=== PATIENT | male | born 1935 | race Hispanic/Latino ===

== ENCOUNTER 2019-04-17 09:35 | Emergency (ER) | payer OTHER, SELFPAY ==
[2019-04-17] MEDS ORDERED: NA CHLORIDE 0.9% 1,000 ML ONE (10:21)
[2019-04-17] MEDS ORDERED: FENTANYL CITR 100 MCG/2 ML ONE (10:21)
[2019-04-17] MEDS ORDERED: ONDANSETRON 4 MG/2 ML VIAL ONE (10:21)
[2019-04-17 10:38] LABS: Absolute Lymphocytes (CBC) 1.2 K/uL (0.7-4.9); Basophils % 0.3 % (0-1.3); Hematocrit 44.6 % (39.6-49.0); Lymphocytes % 8.8 % (15.3-44.8); MPV 11.6 fL (7.6-11.3); RBC Red Blood Cell Count 4.68 M/uL (4.33-5.43)
[2019-04-17 10:39] LABS: Protime INR 1.02
[2019-04-17 10:52] LABS: ALT/SGPT 21 U/L (12-78); AST/SGOT 22 U/L (15-37); Albumin 3.9 g/dL (3.4-5.0); Alkaline Phosphatase 96 U/L (45-117); BUN Blood Urea Nitrogen 22 mg/dL (7-18); Bicarbonate 23 mmol/L (21-32); Bilirubin Direct 0.2 mg/dL (0-0.2); Bilirubin Total 0.6 mg/dL (0.2-1.0); Glucose Level 143 mg/dL (74-106); Magnesium 2.2 mg/dL (1.8-2.4); NT PRO-BNP 2335 pg/mL (<450); Potassium 4.4 mmol/L (3.5-5.1); Protein, Total 7.3 g/dL (6.4-8.2); Sodium Level 142 mmol/L (136-145); Troponin (Emerg Dept Use Only) < 0.02 ng/mL (0.0-0.045)
--- NOTE | 2019-04-17 11:27 | RAD REPORT ---
EXAM DESCRIPTION: RAD - Shoulder 1 View - 04/17/2019 10:58 am FINDINGS: Single portable supine image obtained has post reduction follow-up examination. Humeral head has been reduced back to normal anatomic position. AC joint degenerative changes are pre sent. Acromial humeral joint space is narrowed and the patient may well have chronic rotator cuff tea r. There is a faint crescent-shaped bony density along the inferior margin of the acetabulum. Bankart le monica is possible.
--- NOTE | 2019-04-17 11:29 | RAD REPORT ---
EXAM DESCRIPTION: RAD - Shoulder 1 View - 04/17/2019 10:36 am CLINICAL HISTORY: Right shoulder pain FINDINGS: Anterior dislocation involves the right humeral head. No fracture seen.
--- NOTE | 2019-04-17 11:31 | RAD REPORT ---
EXAM DESCRIPTION: Amanda Single View04/17/2019 11:12 am CLINICAL HISTORY: Cough COMPARISON: None FINDINGS: Mild bilateral interstitial lung opacities The heart is mildly enlarged. Pacemaker leads are in place. Postsurgical changes involve the chest Bony/calcific density lies along the inferior aspect of the glenohumeral joint which may represent a degenerative calcification or bone fragment acute versus chronic IMPRESSION: Mild CHF
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
--- NOTE | 2019-04-17 11:52 | EDPHYS ---
Physician Documentation [facility] Name: Navid Galeana Age: 84 yrs Sex: Male : 1935 Arrival Date: 04/17/2019 Time: 09:40 Bed 4 Private MD: ED Physician Anil Marquez HPI: 04/17 10:11 This 84 yrs old Male presents to ER via EMS with complaints of Shoulder Injury.lynn 10:11 The patient or guardian complains of decreased range of motion, pain, swelling. right lynn shoulder. Context: The problem was sustained. Onset: The symptoms/episode began/occurred 2 day(s) ago. Modifying factors: the symptoms are alleviated by remaining still, The symptoms are aggravated by movement. Associated signs and symptoms: The patient has no apparent associated signs or symptoms. Severity of symptoms: At their worst the symptoms were mild, in the emergency department the symptoms are unchanged. The patient has not experienced similar symptoms in the past. Historical: - Allergies: 09:42 No Known Allergies; jl7 - PMHx: 09:42 Hypertension; Pacemaker; jl7 - PSHx: 09:42 pacemaker; jl7 - Immunization history:: Adult Immunizations unknown. - Social history:: Smoking status: unknown. - Ebola Screening: : No symptoms or risks identified at this time. - Family history:: not pertinent. ROS: 10:11 Constitutional: Negative for fever, chills, and weight loss, Eyes: Negative for injury, lynn pain, redness, and discharge, ENT: Negative for injury, pain, and discharge, Neck: Negative for injury, pain, and swelling, Cardiovascular: Negative for chest pain, palpitations, and edema, Respiratory: Negative for shortness of breath, cough, wheezing, and pleuritic chest pain, Abdomen/GI: Negative for abdominal pain, nausea, vomiting, diarrhea, and constipation, Back: Negative for injury and pain, : Negative for injury, bleeding, discharge, and swelling, Skin: Negative for injury, rash, and discoloration, Neuro: Negative for headache, weakness, numbness, tingling, and seizure, Psych: Negative for depression, anxiety, suicide ideation, homicidal ideation, and hallucinations, Allergy/Immunology: Negative for hives, rash, and allergies, Endocrine: Negative for neck swelling, polydipsia, polyuria, polyphagia, and marked weight changes. 10:11 MS/extremity: Positive for decreased range of motion, pain, of the anterior aspect of right shoulder, right bicep, posterior aspect of right shoulder and right tricep. Exam: 10:11 Constitutional: This is a well developed, well nourished patient who is awake, alert, lynn and in no acute distress. Head/Face: Normocephalic, atraumatic. Eyes: Pupils equal round and reactive to light, extra-ocular motions intact. Lids and lashes normal. Conjunctiva and sclera are non-icteric and not injected. Cornea within normal limits. Periorbital areas with no swelling, redness, or edema. ENT: Nares patent. No nasal discharge, no septal abnormalities noted. Tympanic membranes are normal and external auditory canals are clear. Oropharynx with no redness, swelling, or masses, exudates, or evidence of obstruction, uvula midline. Mucous membranes moist. Neck: Trachea midline, no thyromegaly or masses palpated, and no cervical lymphadenopathy. Supple, full range of motion without nuchal rigidity, or vertebral point tenderness. No Meningismus. Chest/axilla: Normal chest wall appearance and motion. Nontender with no deformity. No lesions are appreciated. Cardiovascular: Regular rate and rhythm with a normal S1 and S2. No gallops, murmurs, or rubs. Normal PMI, no JVD. No pulse deficits. Respiratory: Lungs have equal breath sounds bilaterally, clear to auscultation and percussion. No rales, rhonchi or wheezes noted. No increased work of breathing, no retractions or nasal flaring. Abdomen/GI: Soft, non-tender, with normal bowel sounds. No distension or tympany. No guarding or rebound. No evidence of tenderness throughout. Back: No spinal tenderness. No costovertebral tenderness. Full range of motion. Male : Normal genitalia with no discharge or lesions. Skin: Warm, dry with normal turgor. Normal color with no rashes, no lesions, and no evidence of cellulitis. Neuro: Awake and alert, GCS 15, oriented to person, place, time, and situation. Cranial nerves II-XII grossly intact. Motor strength 5/5 in all extremities. Sensory grossly intact. Cerebellar exam normal. Normal gait. Psych: Awake, alert, with orientation to person, place and time. Behavior, mood, and affect are within normal limits. 10:11 Musculoskeletal/extremity: Extremities: decreased ROM, deformity, pain, ROM: limited active range of motion due to pain, limited passive range of motion due to pain, Circulation is intact in all extremities. Sensation intact. Compartment Syndrome exam of affected extremity: is normal. DVT Exam: no swelling, no appreciated bluish discoloration, no erythema, no increased warmth, pain, tenderness. Vital Signs: 09:42 BP 169 / 102; Pulse 84; Resp 19 S; Temp 97.9(TE); Pulse Ox 100% on R/A; jl7 10:02 BP 217 / 94; Pulse 89; Resp 18 S; Pulse Ox 99% on R/A; aa5 10:40 BP 205 / 103; Pulse 87; Resp 16 S; Pulse Ox 96% on R/A; Pain 0/10; aa5 11:10 BP 190 / 94; Pulse 80; Resp 16 S; Pulse Ox 100% on R/A; aa5 11:54 BP 182 / 90; Pulse 80; Resp 18 S; Pulse Ox 100% on R/A; aa5 10:02 MD notified of increased BP aa5 MDM: 09:41 Patient medically screened. [facility] 10:13 Data reviewed: vital signs, nurses notes, lab test result(s), EKG, radiologic studies, lynn plain films. 04/17 10:10 Order name: Basic Metabolic Panel; Complete Time: 11:48 lynn 04/17 10:10 Order name: CBC with Diff [facility] 04/17 10:10 Order name: LFT's; Complete Time: 11:48 lynn 04/17 10:10 Order name: Magnesium; Complete Time: 11:48 lynn 04/17 10:10 Order name: NT PRO-BNP; Complete Time: 11:48 lynn 04/17 10:10 Order name: PT-INR; Complete Time: 11:48 lynn 04/17 10:10 Order name: Troponin (emerg Dept Use Only); Complete Time: 11:48 lynn 04/17 10:10 Order name: XRAY Chest (1 view); Complete Time: 11:48 lynn 04/17 10:33 Order name: Shoulder 1 View; Complete Time: 11:48 EDMS 04/17 10:41 Order name: Shoulder (1 View) XRAY; Complete Time: 11:48 eb 04/17 10:10 Order name: EKG; Complete Time: 10:10 [facility] 04/17 10:10 Order name: Cardiac monitoring; Complete Time: [facility] 04/17 10:10 Order name: EKG - Nurse/Tech; Complete Time: : [facility] 04/17 10:10 Order name: IV Saline Lock; Complete Time: 11: [facility] 04/17 10:10 Order name: Labs collected and sent; Complete Time: [facility] 04/17 10:10 Order name: O2 Per Protocol; Complete Time: : [facility] 04/17 10:10 Order name: O2 Sat Monitoring; Complete Time: : [facility] 04/17 11:50 Order name: Shoulder Immobilizer; Complete Time: 53 [facility] 04/17 11:50 Order name: Ice pack; Complete Time: :53 [facility] Administered Medications: 10:22 Drug: NS 0.9% 500 ml Route: IV; Rate: bolus; Site: left wrist; aa5 10:22 Drug: NS 0.9% 1000 ml Route: IV; Rate: 125 ml/hr; Site: left wrist; aa5 10:22 Drug: fentaNYL (PF) 50 mcg Route: IVP; Site: left forearm; aa5 10:30 Follow up: Response: No adverse reaction; Pain is decreased aa5 10:22 Drug: Zofran 4 mg Route: IVP; Site: left forearm; aa5 10:30 Follow up: Response: No adverse reaction aa5 Disposition: 04/17/19 11:51 Discharged to Home. Impression: Other dislocation of right shoulder joint, Unspecified combined systolic (congestive) and diastolic (congestive) heart failure - mild, Essential (primary) hypertension. - Condition is Stable. - Discharge Instructions: Heart Failure, Shoulder Dislocation, Hypertension, Hypertension, Fkja-hi-Gzty, How to Take Your Blood Pressure, Fybr-wc-Rtrz, Managing Your Hypertension, Shoulder Dislocation, Ysau-zj-Dwwr. - Prescriptions for Tylenol- Codeine #3 300-30 mg Oral Tablet - take 2 tablets by ORAL route every 6 hours As needed; 26 tablet. - Medication Reconciliation Form, Thank You Letter, Antibiotic Education, Prescription Opioid Use form. - Follow up: Private Physician; When: 2 - 3 days; Reason: Recheck today's complaints, Continuance of care, Re-evaluation by your physician. - Problem is new. - Symptoms have improved. Signatures: Dispatcher [employer] [facility] Anil Marquez MD MD cha Calderon, Audri, RN RN aa5 Rekha Darden RN RN jl7 Corrections: (The following items were deleted from the chart) 10:33 10:11 Shoulder Right 2 View+RAD.RAD.BRZ ordered. [facility] 12:40 11:51 04/17/2019 11:51 Discharged to Home. Impression: Other dislocation of right jl7 shoulder joint; Unspecified combined systolic (congestive) and diastolic (congestive) heart failure - mild; Essential (primary) hypertension. Condition is Stable. Forms are Medication Reconciliation Form, Thank You Letter, Antibiotic Education, Prescription Opioid Use. Follow up: Private Physician; When: 2 - 3 days; Reason: Recheck today's complaints, Continuance of care, Re-evaluation by your physician. Problem is new. Symptoms have improved. lynn
[2019-04-17 12:57] VITALS: TEMP 97.9
[2019-04-17 13:01] VITALS: O2SAT 100
[2019-04-17 13:02] VITALS: BP 182/90
[2019-04-17 13:20] LABS: Blood Morphology Comment NOT SEEN (NOT SEEN); Platelet Estimate ADEQ; Urine White Blood Cell Casts OK
--- NOTE | 2019-04-18 06:37 | EKG ---
Test Date: 2019-04-17 Test Time: 11:24:33 Backshoe Person: NINO MEASUREMENT RESULTS: Intervals: Rate: 82 GA: 166 QRSD: 116 QT: 372 QTc: 434 [place]: P: GA: 166 QRS: 109 T: -46 INTERPRETIVE STATEMENTS: Normal sinus rhythm Rightward axis Cannot rule out Anterior infarct, age undetermined ST & T wave abnormality, consider inferior ischemia Abnormal ECG No previous ECG available for comparison Electronically Signed On 04-18-19 06:36:01 COVER ASSEMBLER by Benny Cortez
== END 2019-04-17 12:40 | disposition home or self-care (01) ==
LOC: ER 09:35 → EDBD 09:35 → ER 12:40
DX: S43.084A Other dislocation of right shoulder joint, initial encounter (principal); I50.40 Unspecified combined systolic (congestive) and diastolic (congestive) heart failure; I10 Essential (primary) hypertension; W01.0XXA Fall on same level from slipping, tripping and stumbling without subsequent striking against object, initial encounter; Y93.01 Activity, walking, marching and hiking; Y92.510 Bank as the place of occurrence of the external cause; Z95.0 Presence of cardiac pacemaker
CPT/HCPCS: 93005; 85025; 80048; 36415; 83735; 85610; 80076; 84484; 83880; 71045; 73020 ×2; 96375; 96374; 99284; J3010; J7030; J2405

== ENCOUNTER 2019-06-08 14:34 | Inpatient (IN) | payer OTHER ==
--- OUTSIDE RECORDS SUMMARY | 2019-06-08 14:35 | XMS REPORT ---
:1935 [facility] Address [address] [place] [address] [address]. [address] [place] [address] Care Team Providers Name Role Phone Unavailable Unavailable Unavailable Payers Payer Name Policy Type Policy Number Effective Date Expiration Date Problems This patient has no known problems. Allergies, Adverse Reactions, Alerts Allergy Allergy Status Severity Reaction(s) Onset Inactive Treating Comments Name Type Date Date Clinician No Known DA Active U 2012-09 Allergies -10 00:00:0 0 Medications This patient has no known medications. Results Test Description Test Time Test Comments Text Results Atomic Results Result Comments MERISSA,ANH 2017-12-31 RUN DATE: 11:00:00 12/31/17 [facility] - Lab PAGE 1 RUN TIME: 1100 Specimen Inquiry RUN USER: INTERFACE PATIENT: IANCHIDI Newberry LOC: ROLANDA U #: [id number] AGE/SX: 82/M [facility]: Deepak Dewitt MD : 31 BED: A DIS: STATUS: ADM IN TLOC: SPEC #: [id number] RECD: 12/30/17 STATUS: PRAVEEN REQ # : [id number] YANELIS: 12/30/17 [facility] DR: Deepak Dewitt MD ENTERED: 12/30/17 SP TYPE: ARTERY, PL OTHR DR: Ron Liirano MD, Gregory S MDORDERED: DECAL, SURG PATH LVL 3 CODES: [id number] - ARTERY, NOS [id number] - ARTERY , NOS PLAQUE, NOS [id number] - ARTERY, NOS DEGENERATION, N [id number] - ARTERY, NOS SCLEROSIS, NOS [id number] - ARTERY, NOS NEOPLASM, MALIG COPIES TO: [place] [id number] [place] [address] [place] [id number] [facility] [address] [place] [address] [place] [id number] [facility] [address] [place] [id number] PROCEDURES: DECAL (12/31/17) SURG PATH LVL 3 (12/30/171520) TISSUES: A. 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 - NO ATYPIA. - NO MALIGNANCY. GROSS DESCRIPTION Right carotid plaque. The specimen consists of a segment of yellow-miles calcified plaque measuring 3.5 x 1 x 0.8 cm. Section submitted for brief decalcification as A1. /tc/pdb MICROSCOPIC DESCRIPTION Right carotid plaque. Dense aggregate of occlusive atheromatous plaque material with dense hyalinizing stromal sclerosis and marked dystrophic calcification. No atypia. No malignancy. /pdb Signed SIGNATURE ON FILE Cirilo Farrar 12/31/17 1100 END OF REPORT
[2019-06-08 15:04] LABS: Absolute Lymphocytes (CBC) 1.4 K/uL (0.7-4.9); Basophils % 0.5 % (0-1.3); MPV 11.3 fL (7.6-11.3); RBC Red Blood Cell Count 4.25 M/uL (4.33-5.43)
[2019-06-08 15:16] LABS: Protime INR 1.07
[2019-06-08 15:21] LABS: Urine Blood NEGATIVE (NEG); Urine Glucose NEGATIVE (NEG); Urine Protein NEGATIVE (NEG)
[2019-06-08 15:21] LABS: Urine Bacteria 20-50 /HPF (NONE SEEN); Urine Culture Reflex Order NOT NEEDED; Urine Mucus 1+ /HPF (NONE SEEN); Urine RBC <5 /HPF (NONE SEEN)
[2019-06-08] MEDS ORDERED: RSI MEDICATION KIT IV ONE (15:35)
[2019-06-08] MEDS ORDERED: ONDANSETRON 4 MG/2 ML VIAL ONE (15:38)
[2019-06-08] MEDS ORDERED: MIDAZOLAM HCL 2 MG/2 ML INJ ONE (15:58)
[2019-06-08 15:59] LABS: ALT/SGPT 14 U/L (12-78); AST/SGOT 17 U/L (15-37); Albumin 3.1 g/dL (3.4-5.0); Alkaline Phosphatase 76 U/L (45-117); BUN Blood Urea Nitrogen 35 mg/dL (7-18); Bicarbonate 22 mmol/L (21-32); Bilirubin Direct 0.2 mg/dL (0-0.2); Bilirubin Total 0.7 mg/dL (0.2-1.0); Glucose Level 113 mg/dL (74-106); Lipase 203 U/L (73-393); Potassium 4.9 mmol/L (3.5-5.1); Protein, Total 6.2 g/dL (6.4-8.2); Sodium Level 141 mmol/L (136-145); Troponin (Emerg Dept Use Only) < 0.02 ng/mL (0.0-0.045)
[2019-06-08 16:06] LABS: Arterial Blood Carboxyhemoglob 0.7 % (0-1.5); Blood Gas Oxyhemoglobin 93.2 % (94-97); Blood O2 Saturation 94.5 % (92-98.5)
--- NOTE | 2019-06-08 16:46 | RAD REPORT ---
EXAM DESCRIPTION: CT - Head Brain Wo Cont - 06/08/2019 4:38 pm CLINICAL HISTORY: Alteration of awareness/confusion COMPARISON: None TECHNIQUE: Computed axial tomography of the head was obtained. IV contrast was not requested. All CT scans are performed using dose optimization technique as appropriate and may include automated exposure control or mA/KV adjustment according to patient size. FINDINGS: An intracranial bleed is not seen . The ventricles are normal in caliber. No extra-axial fluid collection is noted. Mild low-density areas within periventricular, deep and subcortical white matter likely represent isc hemic changes secondary to small vessel disease. Fluid within the sinuses/ mastoids is not seen. IMPRESSION: No acute intracranial abnormality is seen. If patient's symptoms persist MRI of the bra in would be recommended.
[2019-06-08] MEDS ORDERED: propofoL 1,000 MG/100 ML VIAL IV ONE (16:54)
[2019-06-08] MEDS ORDERED: NA CHLORIDE 0.9% 1,000 ML ONE ×2 (16:54→17:52)
--- NOTE | 2019-06-08 16:57 | RAD REPORT ---
EXAM DESCRIPTION: CT - Chest Abd Pelvis Wo Con - 06/08/2019 4:38 pm CLINICAL HISTORY: Abd pain COMPARISON: none TECHNIQUE: Computed axial tomography of the chest, abdomen and pelvis was obtained. Oral contrast wa s given. IV contrast was not requested. All CT scans are performed using dose optimization technique as appropriate and may include automated exposure control or mA/KV adjustment according to patient size. FINDINGS: The evaluation of mediastinum, nixon, vessels and solid organs is limited secondary to the lack of IV contrast administration Endotracheal tube with its tip in the right mainstem bronchus No mediastinal or hilar lymphadenopathy is seen. A pleural effusion is not present. A pericardial effusion is not seen. Bilateral lower lobe consolidation. Left upper lobe atelectasis. Mild left lower lobe atelectasis. The liver, spleen, pancreas, adrenals and right kidney appear grossly normal. Left kidney is small There is no evidence of diverticulitis. Mild anterior subluxation L5 on S1. Spondylolysis L5 Bilateral inguinal hernias contain fat Nasogastric tube with its tip in the duodenal bulb. Duodenal diverticulum Burroughs catheter within the bladder. Elpx-xx-puhxqesg enlargement of the prostate gland IMPRESSION: Bilateral pneumonia Nasogastric tube with its tip in the duodenal bulb Endotracheal tube with its tip in the right mainstem bronchus with left atelectasis Nurse Elsi notified 4:46 p.m. on June 08, 2011
[2019-06-08] MEDS ORDERED: Levofloxacin 750mg IV 750 MG/150 ML BAG IV ONE (17:15)
[2019-06-08] MEDS ORDERED: CEFTRIAXONE/SWI 1gm 1 GM/10 ML SYR ONE (17:15)
--- NOTE | 2019-06-08 17:21 | RAD REPORT ---
EXAM DESCRIPTION: Amanda Single View06/08/2019 5:01 pm CLINICAL HISTORY: Hypoxia COMPARISON: April 2019 FINDINGS: An endotracheal tube has its tip in the right mainstem bronchus. Nasogastric tube is present within the duodenal bulb Left lung atelectasis Mild right lung opacities. Postsurgical changes involve the chest IMPRESSION: Endotracheal tube with its tip in the right mainstem bronchus
--- NOTE | 2019-06-08 17:25 | RAD REPORT ---
EXAM DESCRIPTION: RADChest Single View06/08/2019 5:02 pm CLINICAL HISTORY: Endotracheal tube placement FINDINGS: Endotracheal tube has been retracted. It lies in the very proximal right mainstem bronchu s and should be retracted [address] Tejada in Emergency room was notified at 5:20 p.m. June 08, 2019
--- NOTE | 2019-06-08 17:28 | EDPHYS ---
Physician Documentation [facility] Name: Navid Galeana Age: 84 yrs Sex: Male : 1935 Arrival Date: 06/08/2019 Time: 14:37 Bed 4 Private MD: ED Physician HPI: 06/07 14:44 This 84 yrs old Male presents to ER via Unassigned with complaints of AMS. rn 14:44 The patient presents with decreased responsiveness. Onset: The symptoms/episode rn began/occurred at an unknown time. Possible causes: unknown. Current symptoms: In the emergency department the patient's symptoms have improved. It is unknown whether or not the patient has had similar symptoms in the past. EMS reports AMS, unclear onset, was found unresponsive sitting in chair at home, low O2, covered in emesis, no seizure activity, moans and groans, agitated at times, but not at baseline per family. Unknown if any trauma. Family states only hx of HTN and pacemaker and that he has episodes similar to this before but could not explain more than this. . Historical: - Allergies: 15:11 No Known Allergies; sv - Home Meds: 19:30 lisinopril 20 mg Oral tab 1 tab twice daily [Active]; carvedilol oral 12 mg oral 1 tab sg 2 times per day [Active]; clopidogrel 75 mg oral tab 1 tab once daily [Active]; pravastatin 40 mg oral tab 1 tab once daily [Active]; aspirin 81 mg Oral chew 1 tab once daily [Active]; Vitamin B-12 1,000 mcg Oral tab daily [Active]; Vitamin D 50 mcg Oral daily [Active]; Toviaz 4 mg oral Tb24 1 tab once daily [Active]; - PMHx: 15:11 Hypertension; Pacemaker; High Cholesterol; sv - PSHx: 15:11 Carotid surgery; sv - Immunization history:: Adult Immunizations unknown. - Social history:: Smoking status: unknown. - Unable to obtain history due to: altered mental status. ROS: 14:44 Unable to obtain ROS due to altered mental status. rn Exam: 14:44 Constitutional: This is a well developed, well nourished patient who is sitting in rn stretcher, moaning, trying to take facemask off, covered in emesis. Head/Face: Normocephalic, atraumatic. Eyes: Pupils equal round and reactive to light ENT: No oral swelling or trauma Cardiovascular: Regular rate and rhythm. No pulse deficits. Respiratory: + coarse and diminished breath sounds bilateral Abdomen/GI: soft, + grimaces with palpation in all 4 quadrants MS/ Extremity: Pulses equal, no cyanosis. Moves all 4 ext. Neuro: decreased responsiveness, will groan and localize to painful stimuli, moves all 4 ext. Vital Signs: 14:40 BP 83 / 62; Pulse 73; Resp 30; Pulse Ox 100% ; sv 15:10 Temp 95.2(C); sv 15:20 Resp 34; Pulse Ox 98% ; sv 15:30 Weight 70 kg; sv 15:38 BP 119 / 57; Pulse 92; Resp 17; Pulse Ox 100% ; sv 15:45 BP 213 / 108; Pulse 84; Resp 15; Pulse Ox 100% on ETT ambu; sv 16:00 BP 216 / 133; Pulse 98; Resp 18; Temp 95.6(C); Pulse Ox 100% on ETT ambu; sv 16:15 BP 232 / 123; Pulse 101; Resp 18; Pulse Ox 100% on ETT vent; sv 16:45 BP 211 / 109; Pulse 85; Resp 18; Pulse Ox 97% ; sv 17:15 BP 107 / 74; Pulse 78; Resp 18; Temp 95.5(C); Pulse Ox 97% on ETT vent; sv 17:54 BP 104 / 68; Pulse 77; Resp 12; Pulse Ox 94% on 100% FiO2 ETT vent; sv 18:00 BP 74 / 41; Pulse 62; Resp 18; Pulse Ox 84% on 100% FiO2 ETT vent; sv 18:15 BP 62 / 39; Pulse 60; Resp 17; Pulse Ox 98% on 100% FiO2 ETT vent; sv 18:23 BP 79 / 59; Pulse 68; Resp 19; Temp 95.2(C); Pulse Ox 81% on 100% FiO2 ETT vent; sv 18:30 BP 107 / 73; Pulse 73; Resp 18; Pulse Ox 80% on 100% FiO2 ETT vent; sv 18:47 BP 104 / 67; Pulse 75; Resp 18; Pulse Ox 84% on 100% FiO2 ETT vent; sv 19:00 BP 67 / 47; Pulse 81; Resp 19; Pulse Ox 67% on 100% FiO2 ETT vent; sv 19:09 BP 60 / 29; Pulse 75; Resp 24; Pulse Ox 78% on 100% FiO2 ETT vent; sv 19:15 BP 60 / 32; Pulse 70; Resp 24; Temp 95.5(C); Pulse Ox 50% on 100% FiO2 ETT vent; sg 19:20 BP 62 / 41; Pulse 78; sg 19:40 BP 60 / 42; Pulse 80; Pulse Ox 53% on 100% FiO2 ETT vent; sg 20:15 BP 70 / 48; Pulse 84; Resp 26; Temp 96.7(C); Pulse Ox 60% on 100% FiO2 ETT vent; sg 20:45 BP 71 / 59; Pulse 81; Resp 24; Temp 97.5; Pulse Ox 70% on 100% FiO2 ETT vent; sg 21:00 BP 71 / 50; Pulse 78 MON; Resp 26 A; Temp 98.1(C); Pulse Ox 75% on 100% FiO2 ETT vent; sg 18:[address] Tejada of the O2 sat and informed that the waveform appears good. sv 19:15 RT at bedside for repeat ABG, adjustments to ETT to improve pt saturation sg 19:20 levophed increased at this time sg Procedures: 15:53 Intubation: Ventilated with 100% NRB prior to procedure. O2 saturation prior to admitted attorneys was 97 %. Intubated orally using # 4 Debbie blade with 7.5 mm ETT. was successful on first attempt. Cricoid pressure applied during procedure. Tube secured measured 23 cm at teeth. Placement verified by CO2 detector with (+) color change, auscultating bilateral breath sounds, O2 saturation after procedure was 98 %. Patient tolerated well. Central Line: the site was prepped with Betadine, in sterile fashion, a triple lumen catheter was inserted, in the right in 1 attempts. placement was verified, by blood return, the site was dressed with Tegaderm, using sterile technique, the patient tolerated the procedure, well. MDM: 14:37 Patient medically screened. rn 15:58 ED course: Patient actually started speaking some words, not making sense still, rn intubated for airway protection and to control situation and get imaging performed as patient agitated and continuously trying to remove lines/tubes.. 16:39 ED course: Tube was secured at intubation at 23 at gum/teeth, xray shows right rn mainstem, and checked depth again in ct, tube was somehow pushed down on transport to 26.5, RT pulling tube back to 22cm now.. 16:48 ED course: ETT pulled back to 21cm at [facility]. rn 17:06 Differential Diagnosis: CVA, electrolyte abnormality, hypoglycemia, intracranial bleed, rn pneumonia, seizure, sepsis, TIA, UTI, volume depletion. Data reviewed: vital signs, nurses notes, lab test result(s), EKG, radiologic studies, CT scan, plain films, and as a result, I will admit patient. Test interpretation: by ED physician or midlevel provider: ECG, plain radiologic studies. 17:23 ED course: ETT pulled back, was just proximal right mainstem, now 19cm at [facility].. rn 18:45 ED course: Pt desaturated, improved with suction, a lot of purulent fluid pulled out of rn lungs, notified Dr. Garcia of clinical change and need for reeval. Improves with bagging. . 06/07 14:41 Order name: Urine Culture rn 06/07 14:41 Order name: Basic Metabolic Panel; Complete Time: 17:21 rn 06/07 14:41 Order name: Blood Culture Adult (2) rn 06/07 14:41 Order name: CBC with Diff rn 06/07 14:41 Order name: Lactate; Complete Time: 15:55 rn 06/07 14:41 Order name: LFT's; Complete Time: 17:21 rn 06/07 14:41 Order name: Lipase; Complete Time: 17:21 rn 06/07 14:41 Order name: Procalcitonin; Complete Time: 17:21 rn 06/07 14:41 Order name: Protime (+inr); Complete Time: 17:21 rn 06/07 14:41 Order name: Ptt, Activated; Complete Time: 17:21 rn 06/07 14:41 Order name: Troponin (emerg Dept Use Only); Complete Time: 17:21 rn 06/07 14:41 Order name: Urine Microscopic Only; Complete Time: 15:55 rn 06/07 14:41 Order name: Flu rn 06/07 15:07 Order name: CBC with Automated Diff EDMS 06/07 14:41 Order name: Chest Single View XRAY; Complete Time: 18:25 rn 06/07 14:43 Order name: CT Head Brain wo Cont; Complete Time: 17:21 rn 06/07 14:43 Order name: CT Chest Abdomen W/ Contrast rn 06/07 15:07 Order name: Glucose, Ancillary Testing; Complete Time: 15:55 EDMS 06/07 15:12 Order name: Urine Dipstick--Ancillary (enter results) bd 06/07 15:22 Order name: Urine Dipstick-Ancillary; Complete Time: 15:55 EDMS 06/07 15:56 Order name: ABG; Complete Time: 18:25 em 06/07 16:42 Order name: XRAY Chest (1 view); Complete Time: 18:25 rn 06/07 16:43 Order name: Chest Abd Pelvis Wo Con; Complete Time: 17:21 EDMS 06/07 18:25 Order name: XRAY Chest (1 view) rn 06/07 18:25 Order name: ABG rn 06/07 19:22 Order name: ABG Arterial Blood Gas; Complete Time: 07:04 EDMS 06/07 19:59 Order name: Lactate Sepsis 2 HR Follow-up; Complete Time: 07:04 EDMS 06/07 14:41 Order name: Accucheck; Complete Time: 15:12 rn 06/07 14:41 Order name: Cardiac monitoring; Complete Time: 15:11 rn 06/07 14:41 Order name: EKG - Nurse/Tech; Complete Time: 15:11 rn 06/07 14:41 Order name: IV Saline Lock - Large Bore; Complete Time: 15:11 rn 06/07 14:41 Order name: Labs collected and sent; Complete Time: 15:11 rn 06/07 14:41 Order name: O2 Per Protocol; Complete Time: 15:11 rn 06/07 14:41 Order name: O2 Sat Monitoring; Complete Time: 15:11 rn 06/07 14:41 Order name: Urine Dipstick-Ancillary (obtain specimen); Complete Time: 15:12 rn 06/07 15:05 Order name: EKG; Complete Time: 15:05 06/07 15:11 Order name: Labs - recollect needed: recollect c7; Complete Time: 17:27 bd Administered Medications: Discontinued: Propofol 5 mcg/kg/min IV at calculated rate continuous; titrate per protocol (titrate by 5-10mcg/kg/min every 10 min to max rate of 50 mcg/kg/min) 14:45 Drug: NS 0.9% 1000 ml Route: IV; Rate: 1000 ml; Site: left forearm; ss 15:30 Follow up: Response: No adverse reaction; IV Status: Completed infusion; IV Intake: sv 1000ml 15:35 Drug: Zofran (Ondansetron) 4 mg Route: IVP; Site: right forearm; sv 16:00 Follow up: Response: No adverse reaction sv 15:37 Drug: Etomidate 20 mg Route: IVP; Site: right forearm; sv 16:00 Follow up: Response: No adverse reaction sv 15:38 Drug: Rocuronium 50 mg Route: IVP; Site: right forearm; sv 16:00 Follow up: Response: No adverse reaction sv 15:54 Drug: Versed 2 mg Route: IVP; Site: right femoral; sv 16:30 Follow up: Response: No adverse reaction sv 17:00 Drug: Propofol 5 mcg/kg/min {Note: started at 10 mcg/kg/min per Dr Tejada.} Route: IV; sv Rate: calculated rate; Site: right femoral; 17:00 Drug: NS 0.9% 1000 ml Route: IV; Rate: 1000 ml; Site: right femoral; sv 18:10 Follow up: Response: No adverse reaction; IV Status: Completed infusion; IV Intake: sv 1000ml 17:05 Drug: Rocephin 1 grams Route: IV; Rate: bolus; Site: right femoral; sv 17:07 Follow up: Response: No adverse reaction; IV Status: Completed infusion; IV Intake: 10mlsv 17:10 Drug: LevaQUIN 750 mg Volume: 150 ml; Route: IVPB; Infused Over: 90 mins; Site: right sv femoral; 18:50 Follow up: Response: No adverse reaction; IV Status: Completed infusion; IV Intake: sv 150ml 18:10 Drug: NS 0.9% 1000 ml Route: IV; Rate: 1000 ml; Site: right femoral; sv 18:55 Follow up: Response: No adverse reaction; IV Status: Completed infusion; IV Intake: sv 1000ml 18:12 Drug: Levophed (4 mg/250 mL D5W 4 mcg/min {Note: started at 5 mcg/min.} Route: IV; sv Rate: calculated rate; Site: right femoral; 18:30 Follow up: Rate change 10 calculated rate sv 19:10 Follow up: Response: No adverse reaction; Rate change 15 calculated rate sv 19:26 Follow up: Rate change 20 mcg/min sg 19:43 Follow up: Rate change 30 mcg/min sg 20:00 Follow up: Rate change 30 mcg/min sg 21:34 Follow up: IV Status: Order to discontinue infusion; per Disposition: 17:24 Critical Care:. rn 18:47 Co-signature as Attending Physician, Emmanuel Tejada MD. rn Disposition: Patient pronounced on 06/08/19 23:00 by Daniel Barry. Impression: Respiratory arrest. - Released to Home. Critical care time excluding procedures: 17:24 Critical care time: Bedside Care: 25 minutes, Consultation: 5 minutes, Family rn Intervention: 5 minutes. Total time: 35 minutes Signatures: Dispatcher [employer] EDMS Kari Lala Stephanie, RN RN sv Gay, Steven, RN RN sg Nieto, Roman, MD MD rn Smirch, Shelby, RN RN ss Lasagna, Tonya, RN RN tl1 Corrections: (The following items were deleted from the chart) 16:36 14:44 Chest Abdomen Pelvis W Con+CT.RAD.BRZ ordered. [facility]NE EDMS 16:42 16:38 CT CHEST,ABD,PELVIS W/WO ordered. [facility] EDMS 20:51 17:27 Hospitalization Ordered by Carlene Garcia MD for Inpatient Admission. Preliminary tl1 diagnosis is Multifocal pneumonia; Altered mental status, unspecified; Hypoxemia; Sepsis, unspecified organism; Aspiration pneumonitis. Bed requested for Intensive Care Unit. Status is Inpatient Admission. Condition is Serious. Problem is new. Symptoms have improved. rn 06/08 01:01 06/07 20:51 06/08/2019 17:27 Hospitalization Ordered by Carlene Garcia MD for Inpatient sg Admission. Preliminary diagnosis is Multifocal pneumonia; Altered mental status, unspecified; Hypoxemia; Sepsis, unspecified organism; Aspiration pneumonitis. Bed requested for [facility] ER HOLD. Status is Inpatient Admission. Condition is Serious. Problem is new. Symptoms have improved. tl1 06/08 01:03 01:01 06/08/2019 17:27 Hospitalization Ordered by Carlene Garcia MD for Inpatient sg Admission. Preliminary diagnosis is Multifocal pneumonia; Altered mental status, unspecified; Hypoxemia; Sepsis, unspecified organism; Aspiration pneumonitis. Bed requested for [facility] ER HOLD. Status is Inpatient Admission. Condition is Serious. Problem is new. Symptoms have improved. sg
--- NOTE | 2019-06-08 17:28 | ER ---
Nurse's Notes [facility] Name: Navid Galeana Age: 84 yrs Sex: Male : 1935 Arrival Date: 06/08/2019 Time: 14:37 Bed 4 Private MD: Diagnosis: Respiratory arrest Presentation: 06/07 14:20 Acuity: JANETTE 1 ph 14:21 Chief complaint: EMS states: called out for pt being unresponsive, pt was alone at home sv while family went out. Pt was found sitting in a chair with vomit all over him. On EMS arrival BP 68/48, and BP REVIVAL CLERK was 90/50 after IV fluids started. Coronavirus screen: Does not understand, disoriented. Ebola Screen: Unable to complete the Ebola screening because: The patient is disoriented. 14:21 Method Of Arrival: EMS: [facility] sv 15:10 Initial Sepsis Screen: Does the patient meet any 2 criteria? RR > 20 per min. Temp sv <36.0*C (96.8*F)) or > 38.3*C (100.9*F). Systolic BP < 90 mmHg. Does the patient have a suspected source of infection? No. Patient's initial sepsis screen is negative. Risk Assessment: Do you want to hurt yourself or someone else? Unable to obtain. Triage Assessment: 14:20 General: Appears distressed, uncomfortable, Behavior is agitated, restless, sv uncooperative. Pain: Unable to use pain scale. Patient is disoriented. Does not appear to understand pain scale. Patient appears agitated, restless, FLACC scale score is 0 out of 10. Neuro: Level of Consciousness is confused, lethargic, Oriented to none. Cardiovascular: Heart tones S1 S2 present Capillary refill is > 3 seconds is sluggish in bilateral fingers. Respiratory: Airway is patent Respiratory effort is even, labored, shallow, Respiratory pattern is tachypnea Breath sounds are coarse bilaterally. GI: Abdomen is round distended, Abd is soft and non tender X 4 quads. Derm: Skin is thin, with poor turgor Skin is pale. Historical: - Allergies: 15:11 No Known Allergies; sv - Home Meds: 19:30 lisinopril 20 mg Oral tab 1 tab twice daily [Active]; carvedilol oral 12 mg oral 1 tab sg 2 times per day [Active]; clopidogrel 75 mg oral tab 1 tab once daily [Active]; pravastatin 40 mg oral tab 1 tab once daily [Active]; aspirin 81 mg Oral chew 1 tab once daily [Active]; Vitamin B-12 1,000 mcg Oral tab daily [Active]; Vitamin D 50 mcg Oral daily [Active]; Toviaz 4 mg oral Tb24 1 tab once daily [Active]; - PMHx: 15:11 Hypertension; Pacemaker; High Cholesterol; sv - PSHx: 15:11 Carotid surgery; sv - Immunization history:: Adult Immunizations unknown. - Social history:: Smoking status: unknown. - Unable to obtain history due to: altered mental status. Screenin:00 Abuse screen: pt disoriented. Nutritional screening: No deficits noted. Tuberculosis sv screening: No symptoms or risk factors identified. Fall Risk No fall in past 12 months (0 pts). No secondary diagnosis (0 pts). IV access (20 points). Ambulatory Aid- None/Bed Rest/Nurse Assist (0 pts). Gait- Normal/Bed Rest/Wheelchair (0 pts) Mental Status- Overestimates/Forgets Limitations (15 pts.). Total Ariza Fall Scale indicates High Risk Score (45 or more points). Fall prevention measures have been instituted. Side Rails Up X 2 Placed Close to Nursing Station Frequent Obs/Assessments Occuring As available patient and family educated on Fall Prevention Program and Strategies. Assessment: 15:20 Reassessment: Patient appears in no apparent distress at this time. No changes from sv previously documented assessment. See triage assessment. Pt continues to not follow commands, pt does respond to painful stimuli. Informed Dr Tejada. Dr Tejada to bedside. Stated to prepare for intubation. 16:15 Reassessment: Patient appears in no apparent distress at this time. Pt is intubated at this time. 17:10 Reassessment: Patient appears in no apparent distress at this time. No changes from sv previously documented assessment. ETT moved to 21 cm at the gums by Dr Tejada. Pt remains intubated. 17:25 Reassessment: ETT moved to 19 cm at the gums by Dr Tejada. sv 17:35 Reassessment: Repeat CXR done to confirm placement. sv 18:34 Reassessment: Juan F RT at bedside to obtain the repeat ABG. sv 18:45 Reassessment: Juan F at the bedside attempting to suction pt with in-line suction, very sv little contents came out. Pt disconnected from the ventilator and secretions started coming out of the ETT and were suctioned up. Pt being ventilated by AMBU bag at this time. 19:24 Reassessment: RT at bedside for suctioning, pt o2 saturation reading 55% at this time sg on the vent, pt son PORohith at bedside, reports the paper work for POA on pt file, reports he is aware now, pt continues to hold in the ED at this time. 20:26 Reassessment: Patient appears in no apparent distress at this time. pt family remains sg at bedside at this time, awaiting a bed assignment for ICU, pt family stated understanding. 20:40 Reassessment: Patient appears in no apparent distress at this time. pt family, daughter sg reports that the OGT was pushed out of the pts mouth at this time, a new OGT will be placed at this time. 21:00 Reassessment: pt POA requesting that a new OGT not be placed at this time, until the sg final family member has arrived, they wish to discuss withdrawing care after speaking with the last family member once they arrive, an NGT/OGT is on hold at this time. 21:32 Reassessment: Patient appears in no apparent distress at this time. orders to DC IV sg Levophed and withdraw care at this time, pt and pt family remains at bedside at this time. 21:45 Reassessment: Patient appears in no apparent distress at this time. RT at bedside for sg withdrawal of care. 21:45 Reassessment: offered family to contact shipper/receiver or other spiritual leaders as sg requested, at this time the family refuses. 22:04 Reassessment: Patient appears in no apparent distress at this time. appropriate sg signatures obtained on the facility withdrawal of care forms and placed on the pt chart. 22:10 Reassessment: pt has been extubated and placed on a NRB mask at this time, pt remains sg on bedside monitor, pt continues to be unresponsive, pt family at bedside at this time. 22:30 Reassessment: pt family requesting we contact the hospital shipper/receiver, a call has been sg made and the shipper/receiver is en route to the facility at this time. 23:00 Reassessment: Patient appears in no apparent distress at this time. no respirations sg noted at this time, pt is unresponsive and not breathing, paced rythym with a rate of 60 noted on the bedside monitor. pt family remains at bedside. 23:04 Reassessment: notified of pt condition at this time, reports he will be sg doing the certificate, the PD have been notified, awaiting a administrative law judge at this time. 23:23 Reassessment: [facility] has been contacted, spoke with rep Spencer for case number [id number]. Vital Signs: 14:40 BP 83 / 62; Pulse 73; Resp 30; Pulse Ox 100% ; sv 15:10 Temp 95.2(C); sv 15:20 Resp 34; Pulse Ox 98% ; sv 15:30 Weight 70 kg; sv 15:38 BP 119 / 57; Pulse 92; Resp 17; Pulse Ox 100% ; sv 15:45 BP 213 / 108; Pulse 84; Resp 15; Pulse Ox 100% on ETT ambu; sv 16:00 BP 216 / 133; Pulse 98; Resp 18; Temp 95.6(C); Pulse Ox 100% on ETT ambu; sv 16:15 BP 232 / 123; Pulse 101; Resp 18; Pulse Ox 100% on ETT vent; sv 16:45 BP 211 / 109; Pulse 85; Resp 18; Pulse Ox 97% ; sv 17:15 BP 107 / 74; Pulse 78; Resp 18; Temp 95.5(C); Pulse Ox 97% on ETT vent; sv 17:54 BP 104 / 68; Pulse 77; Resp 12; Pulse Ox 94% on 100% FiO2 ETT vent; sv 18:00 BP 74 / 41; Pulse 62; Resp 18; Pulse Ox 84% on 100% FiO2 ETT vent; sv 18:15 BP 62 / 39; Pulse 60; Resp 17; Pulse Ox 98% on 100% FiO2 ETT vent; sv 18:23 BP 79 / 59; Pulse 68; Resp 19; Temp 95.2(C); Pulse Ox 81% on 100% FiO2 ETT vent; sv 18:30 BP 107 / 73; Pulse 73; Resp 18; Pulse Ox 80% on 100% FiO2 ETT vent; sv 18:47 BP 104 / 67; Pulse 75; Resp 18; Pulse Ox 84% on 100% FiO2 ETT vent; sv 19:00 BP 67 / 47; Pulse 81; Resp 19; Pulse Ox 67% on 100% FiO2 ETT vent; sv 19:09 BP 60 / 29; Pulse 75; Resp 24; Pulse Ox 78% on 100% FiO2 ETT vent; sv 19:15 BP 60 / 32; Pulse 70; Resp 24; Temp 95.5(C); Pulse Ox 50% on 100% FiO2 ETT vent; sg 19:20 BP 62 / 41; Pulse 78; sg 19:40 BP 60 / 42; Pulse 80; Pulse Ox 53% on 100% FiO2 ETT vent; sg 20:15 BP 70 / 48; Pulse 84; Resp 26; Temp 96.7(C); Pulse Ox 60% on 100% FiO2 ETT vent; sg 20:45 BP 71 / 59; Pulse 81; Resp 24; Temp 97.5; Pulse Ox 70% on 100% FiO2 ETT vent; sg 21:00 BP 71 / 50; Pulse 78 MON; Resp 26 A; Temp 98.1(C); Pulse Ox 75% on 100% FiO2 ETT vent; sg 18:[address] Tejada of the O2 sat and informed that the waveform appears good. sv 19:15 RT at bedside for repeat ABG, adjustments to ETT to improve pt saturation sg 19:20 levophed increased at this time sg ED Course: 14:21 Maintain EMS IV. Dressing intact. Site clean \T\ dry. Gauge \T\ site: 20G L FA. sv 14:30 Patient has correct armband on for positive identification. Placed in gown. Bed in low sv position. Call light in reach. Side rails up X2. site monitor on. Pulse ox on. NIBP on. Cleaned of incontinence. 14:37 Patient arrived in ED. rn 14:37 Emmanuel Tejada MD is Attending Physician. rn 14:45 Radiology exam delayed due to lab results not completed at this time. (BUN/Creatinine). vm2 14:45 Inserted saline lock: 20 gauge in right forearm, using aseptic technique. Blood sv collected. Flushed right forearm with 5 ml normal saline. 14:50 Arm band placed on. sv 14:56 Paige Sosa RN is Primary Nurse. ss 15:00 Burroughs cath inserted, using sterile technique, 16 Fr., by ED staff, balloon inflated, to sv gravity drainage, urine specimen collected. other done by Keny RN returned clear yellow urine. 15:12 CBC with Diff Sent. sv 15:22 Radiology exam delayed due to lab results not completed at this time. (BUN/Creatinine). nj 15:34 Radiology exam delayed due to INTUBATION. jb2 15:39 Assisted provider with intubation using 7.5 mm ETT via oral route. ET tube secured at sv 22cm at the gums. Set up intubation tray. Intubated by Emmanuel Tejada MD Placement verified by CO2 detector w/ + color change, auscultating bilateral breath sounds, Patient tolerated well. 15:47 Assisted provider with central line placement. Set up central line tray. Triple lumen sv line placed in right femoral. Line placed by Emmanuel Tejada MD Placement verified by blood return, Dressed with Tegaderm, Patient tolerated well. Before procedure, did Practitioner(s) obtain informed consent? No. Patient \T\ family education about procedure, CLABSI prevention and S/S of infection? No. Time-out/Briefing performed prior to start of procedure? Yes. Was handwashing/sanitizing done immediately prior to procedure? Yes. Was patient positioned to in a way to prevent air embolism? Yes. Was procedure site sterilized? Yes, with chlorhexidine. Was the site allowed to dry? Yes. Was local anesthetic and/or sedation utilized? Yes. During the procedure, did the Practitioner(s) maintain a sterile field? Yes. Were unused ports clamped during insertion? Yes. Was a 2nd qualified MD obtained after 3 unsuccessful insertion attempts? Yes. Was blood aspirated from each lumen? Yes. After the procedure, did the Practitioner(s) clean the site and apply a sterile dressing? Yes. 16:03 Triage completed. ph 16:15 NGT: inserted 16 Fr. other orally, done by Dr Tejada after several tries by myself and sv Keny UGARTE verified placement of air over stomach, verified return of gastric contents, Placement verified by X-ray, to intermittent suction. Returned gastric contents. 16:[address] via stretcher. sv 16:41 CT Head Brain wo Cont In Process Unspecified. EDMS 16:43 Chest Abd Pelvis Wo Con In Process Unspecified. EDMS 17:01 Chest Single View XRAY In Process Unspecified. EDMS 17:04 XRAY Chest (1 view) In Process Unspecified. EDMS 17:24 Carlene Garcia MD is Hospitalizing Provider. rn 17:27 Urine Dipstick--Ancillary (enter results) Sent. sv 17:28 CT Chest Abdomen W/ Contrast Sent. sv 18:00 Cleaned of incontinence. Linen changed. sv 18:25 Suctioned via ETT - small amount thin white sputum. sv 19:10 Report given to Sergio UGARTE. sv 19:31 Primary Nurse role handed off by Paige Sosa RN sg 19:31 Sergio Hinkle RN is Primary Nurse. sg 19:50 One-on-one care X 270 minutes. sv 20:49 Report received from Paige Sosa RN. sg 22:44 Aged Or Disabled Carer to see patient. sg 06/08 01:02 Attending Physician role handed off by Emmanuel Tejada MD sg 01:03 Daniel Barry MD is Pronouncing Provider. sg Administered Medications: Discontinued: Propofol 5 mcg/kg/min IV at calculated rate continuous; titrate per protocol (titrate by 5-10mcg/kg/min every 10 min to max rate of 50 mcg/kg/min) 03/09 14:45 Drug: NS 0.9% 1000 ml Route: IV; Rate: 1000 ml; Site: left forearm; ss 15:30 Follow up: Response: No adverse reaction; IV Status: Completed infusion; IV Intake: sv 1000ml 15:35 Drug: Zofran (Ondansetron) 4 mg Route: IVP; Site: right forearm; sv 16:00 Follow up: Response: No adverse reaction sv 15:37 Drug: Etomidate 20 mg Route: IVP; Site: right forearm; sv 16:00 Follow up: Response: No adverse reaction sv 15:38 Drug: Rocuronium 50 mg Route: IVP; Site: right forearm; sv 16:00 Follow up: Response: No adverse reaction sv 15:54 Drug: Versed 2 mg Route: IVP; Site: right femoral; sv 16:30 Follow up: Response: No adverse reaction sv 17:00 Drug: Propofol 5 mcg/kg/min {Note: started at 10 mcg/kg/min per Dr Tejada.} Route: IV; sv Rate: calculated rate; Site: right femoral; 17:00 Drug: NS 0.9% 1000 ml Route: IV; Rate: 1000 ml; Site: right femoral; sv 18:10 Follow up: Response: No adverse reaction; IV Status: Completed infusion; IV Intake: sv 1000ml 17:05 Drug: Rocephin 1 grams Route: IV; Rate: bolus; Site: right femoral; sv 17:07 Follow up: Response: No adverse reaction; IV Status: Completed infusion; IV Intake: 10mlsv 17:10 Drug: LevaQUIN 750 mg Volume: 150 ml; Route: IVPB; Infused Over: 90 mins; Site: right sv femoral; 18:50 Follow up: Response: No adverse reaction; IV Status: Completed infusion; IV Intake: sv 150ml 18:10 Drug: NS 0.9% 1000 ml Route: IV; Rate: 1000 ml; Site: right femoral; sv 18:55 Follow up: Response: No adverse reaction; IV Status: Completed infusion; IV Intake: sv 1000ml 18:12 Drug: Levophed (4 mg/250 mL D5W 4 mcg/min {Note: started at 5 mcg/min.} Route: IV; sv Rate: calculated rate; Site: right femoral; 18:30 Follow up: Rate change 10 calculated rate sv 19:10 Follow up: Response: No adverse reaction; Rate change 15 calculated rate sv 19:26 Follow up: Rate change 20 mcg/min sg 19:43 Follow up: Rate change 30 mcg/min sg 20:00 Follow up: Rate change 30 mcg/min sg 21:34 Follow up: IV Status: Order to discontinue infusion; per Intake: 15:30 IV: 1000ml; Total: 1000ml. sv 17:07 IV: 10ml; Total: 1010ml. sv 18:10 IV: 1000ml; Total: 2010ml. sv 18:50 IV: 150ml; Total: 2160ml. sv 18:55 IV: 1000ml; Total: 3160ml. sv Outcome: 17:27 Decision to Hospitalize by Provider. rn 22:38 Admitted to ER Hold. Please see [facility] for further documentation. sg 22:38 critical 06/08 01:01 Patient left the ED. sg 01:04 Patient left the ED. sg 01:04 Patient : Time of 23:00 Pronounced by Daniel Barry MD Body to sg home. 01:04 Condition: 01:04 Instructed on pt to [facility] with Vickey per MILADIS Alvarado request, Diamond Saw Operator Tyrell has signed the release, pt leaving at this time Signatures: Dispatcher [employer] Paige Ruiz RN RN Sergio Hinkle RN RN Conor Juancarlos jb2 Emmanuel Tejada MD [facility]n [facility] RN RN Dulce Turner RN RN [facility], [place] [facility] Corrections: (The following items were deleted from the chart) 06/07 17:39 14:40 BP 83 / 62; Pulse 73bpm; Resp 22bpm; Pulse Ox 100%; sv sv 19:33 17:10 Reassessment: ETT moved to 21 cm at the gums by Dr Tejada. sv sv
[2019-06-08] MEDS ORDERED: NOREPINEPHRINE 4mg/D5W 250mL 4 MG/250 ML BAG IV ONE ×2 (18:19→21:02)
[2019-06-08] MEDS ORDERED: LEVALBUTEROL 1.25 MG/3 ML NEB ONE (18:55)
[2019-06-08 19:20] LABS: Arterial Blood Carboxyhemoglob 0.6 % (0-1.5); Blood Gas Oxyhemoglobin 59.8 % (94-97); Blood O2 Saturation 60.6 % (92-98.5)
[2019-06-08 22:29] VITALS: BP 53/45; TEMP 100.2
--- NOTE | 2019-06-08 23:30 | P.HP ---
Certification for Inpatient Patient admitted to: Inpatient With expected LOS: >2 Midnights Patient will require the following post-hospital care: None Practitioner: I am a practitioner with admitting privileges, knowledge of patient current condition, hospital course, and medical plan of care. Services: Services provided to patient in accordance with Admission requirements found in Title 42 Section 412.3 of the Code of Federal Regulations Patient History Date of Service: 06/08/19 Reason for admission: Respiratory failure History of Present Illness: The patient is an 84-year-old gentleman who came into the hospital with altered mental status. Patient's airway was protected and had to be intubated. Patient was hypotensive and had to be started on pressors. Patient workup revealed a pneumonia. Patient had bilateral infiltrates. Patient was intubated and was on pressors. Patient is not feeling well. Patient is hypoxic even though he remains on the ventilator. Patient is hypotensive. Patient's prognosis remains poor. Family is deciding if they want to continue care as patient did not want extensive measures. Patient was admitted to the hospital for further evaluation. Allergies No Known Allergies Allergy (Unverified 06/08/19 19:32) - Past Medical/Surgical History Past Surgical History: Patient denies surgical history - Family History Father Family History: Reviewed- Non-Contributory - Social History Smoking Status: Former smoker Alcohol use: No CD- Drugs: No Review of Systems is unable to be obtained Physical Examination - Vital Signs Temperature: 100.2 F Blood Pressure: 53/45 Pulse: 100 Respirations: 18 Pulse Ox (%): 70 - Physical Exam General: Unresponsive, Other (intubated and sedated) HEENT: Atraumatic, PERRLA, Mucous membr. moist/pink, Other (ET tube in place), EOMI, Sclerae nonicteric Neck: Supple, 2+ carotid pulse no bruit, No LAD, Without JVD or thyroid abnormality Respiratory: Diminished, Crackles/rales Cardiovascular: Regular rate/rhythm, Systolic murmur Gastrointestinal: Soft and benign Musculoskeletal: No clubbing, No swelling Integumentary: No rashes Neurological: Normal tone - Studies Laboratory Data (last 24 hrs) 06/08/19 15:20: Sodium 141, Potassium 4.9, BUN 35 H, Creatinine 1.86 H, Glucose 113 H, Total Bilirubin 0.7, AST 17, ALT 14, Alkaline Phosphatase 76, Lipase 203 06/08/19 14:45: PT 12.6 H, INR 1.07, APTT 28.2 06/08/19 14:45: WBC 10.5, Hgb 13.4 L, Hct 41.0, Plt Count 193 Microbiology Data (last 24 hrs): 06/08/19 14:45 Nasopharnyx Influenza Type A Antigen Screen - Final 06/08/19 14:45 Nasopharnyx Influenza Type B Antigen Screen - Final Assessment & Plan - Problems (Diagnosis) (1) Respiratory failure Current Visit: Yes Status: Acute Qualifiers: Chronicity: acute - Plan 1. IV abx 2. Vent support 3. Pressor suppport 4. Code status 5. GI/DVT prophylaxis Discharge Plan: Home Plan to discharge in: Greater than 2 days - Advance Directives Does patient have a Living Will: No Does patient have a Durable POA for Healthcare: No - Code Status/Comfort Care Code Status Assessed: Yes Code Status: Full Code Critical Care: Yes Time Spent Managing PTS Care (In Minutes): 60
--- NOTE | 2019-06-08 23:50 | P.DS ---
Discharge Date: 06/08/19 Disposition: Reason for Admission: Respiratory failure Brief History of Present Illness: The patient is an 84-year-old gentleman who came into the hospital with altered mental status. Patient's airway was protected and had to be intubated. Patient was hypotensive and had to be started on pressors. Patient workup revealed a pneumonia. Patient had bilateral infiltrates. Patient was intubated and was on pressors. Patient is not feeling well. Patient is hypoxic even though he remains on the ventilator. Patient is hypotensive. Patient's prognosis remains poor. Family is deciding if they want to continue care as patient did not want extensive measures. Patient was admitted to the hospital for further evaluation. Hospital Course: The family decided to withdraw care. General: Unresponsive Patient Discharge Instructions: Patient shortly after family withdrew care. Time spent managing pt's care (in minutes): 20
[2019-06-09 02:06] VITALS: O2SAT 75
--- NOTE | 2019-06-09 03:33 | HP ---
Date of Admission: 06/08/2019 Code Status: Full. Chief Complaint: Found unresponsive. History Of Present Illness: Patient is an 84-year-old male with past medical history of hypertension, status post pacemaker. It should be noted that the patient's history is taken from medical records and ER staff. No family present at the bedside. Patient is unable to provide history due to his medical conditions. Patient was having recent worsening shortness of breath, was taken to his PCP, started on Lasix; however, got worse. Denies any fever or chills, but has some dry cough. Family stepped out for a short while and came back to find him unresponsive, covered in vomitus. At baseline, patient is alert, oriented, ambulatory, and is found to have a low oxygen level. No seizure activity was noted. Unclear if there was any trauma. In the ER, his vital signs showed for him to be hypothermic with a temperature of 94, blood pressure was in the 80s over 60s. He was given 2 L of normal saline boluses and blood pressure improved to 107/77. CT scan showed bilateral pneumonia, which is likely aspiration type. Creatinine level was elevated at 1.86, which is somewhat above his baseline. Lactate was elevated. He was acidotic with a pH of 7.23. White blood cell count was normal. Influenza screen was negative. Patient was then admitted to the hospital for further evaluation. His head CT scan also did not show any acute changes. When seen in the ER, he was intubated, nonsedated, largely nonresponsive. Past Medical History: Hypertension, hypercholesterolemia. Surgical History: Status post pacemaker. Allergies: NO KNOWN DRUG ALLERGIES. Medications: As per medication reconciliation list. Family History: Unable to obtain. Social History: Unable to obtain at this time. No family is present at the bedside. Review of Systems: Unable to obtain due to patient's altered mental status. Physical Examination: Vital Signs: Blood pressure 82/62, pulse 73, respirations 22, O2 100% on ET tube, temperature 95.2. General: Intubated, nonresponsive, nonsedated, ill-appearing elderly male. HEENT: Normocephalic, atraumatic. Pupils equal, round, reactive to light. Neck: Supple. Trachea midline. CV: S1, S2. Peripheral pulses weak. Respiratory: Diminished breath sounds. Diffuse rales heard. No wheezing or stridor. Gastrointestinal: Abdomen is soft, nondistended. Positive bowel sounds. No guarding or rigidity. Extremities: No clubbing, cyanosis, or edema. No calf swelling. Neuro: Patient is largely nonresponsive, not sedated, currently intubated, not following commands. Laboratory Data: WBC 10.5, H and H 13.4 and 41, platelets 193, neutrophils 77% . INR 1.07. ABG; pH 7.23, pCO2 of 48.5, pO2 of 92, bicarb 19.7. Sodium 141, potassium 4.9, chloride 112, CO2 of 22, BUN 35, creatinine 1.86, glucose 113, lactate 2.7, calcium 8.8. Troponin less than 0.02, albumin 3.1. Procalcitonin less than 0.05. UA; negative nitrite, negative leukocyte esterase, less than 5 wbc's, 20 to 50 bacteria. Influenza screen is negative. Imaging Studies: Head CT scan personally reviewed shows no acute intracranial abnormality. CT of chest, abdomen, and pelvis shows bilateral pneumonia. Nasogastric tube with its tip of the duodenal bulb, endotracheal tube with its tip in the right mainstem bronchus with left atelectasis. Chest x-ray shows ET tube has been retracted, lies very proximal; right mainstem bronchus shows to be retracted 2 cm. Also shows some mild right lung opacities, left lung atelectasis, postsurgical changes involving the chest. Assessment: 84-year-old male with: 1. Acute respiratory failure with hypoxia. Continue on mechanical ventilation. Dr. Martinez with Pulmonology has been consulted secondary to pneumonia. 2. Bilateral pneumonia. We will start on IV Zosyn. We will obtain blood cultures and tracheal aspirate for sputum culture. 3. Hypothermia. Continue with Divya Hugger. 4. Acidosis secondary to being unresponsive. We will repeat lactate in 2 hours. Procalcitonin is negative. 5. Acute hypotension, possible shock. Blood pressure in the 80s over 60s, improved with IV fluid resuscitation. Continue to monitor closely. Start on pressors if MAP less than 65. 6. Acute metabolic encephalopathy secondary to above. 7. Hypercholesterolemia. We will continue home medications as appropriate. 8. Status post pacemaker. Plan: Admit patient to ICU, place as inpatient. Length of stay greater than 2 midnights. We will consult Cardiology and Neurology for his possible syncopal episode may be related to cardiogenic versus neurogenic causes. We will interrogate the pacemaker. May need to repeat further imaging of the brain, if not improving. Overall, guarded prognosis. /ILA Voice ID: [id number] MTDD
[2019-06-09] MEDS ORDERED: ETOMIDATE 20 MG/10 ML VIAL IV ONE (10:20)
[2019-06-09] MEDS ORDERED: ROCURONIUM 50 MG/5 ML VIAL IV ONE (10:20)
--- NOTE | 2019-06-17 13:58 | RAD REPORT ---
EXAM DESCRIPTION: RAD - Chest Single View - 06/08/2019 6:59 pm CLINICAL HISTORY: desaturation, intubation COMPARISON: June 07 TECHNIQUE: AP portable chest image was obtained 06/08/2019 6:59 pm Exam was resubmitted for interpretation as the original dictation cannot be retrieved due to technica l difficulties. . FINDINGS: Lungs are underinflated. ET tube is in place good position mid aortic arch level. NG tube is in place with the tip in the gastric antrum or proximal duodenum. Left subclavian defibrillator is in place. Lung volumes are low. Alveolar opacification is present throughout much of the left hemithorax. Left pleural effusion present. No significant right lung parenchymal finding. Heart size is upper normal a ccentuated by under penetrated technique and shallow inspiration portable imaging. No pneumothorax. IMPRESSION: Extensive alveolar opacification throughout the left hemithorax with left pleural effusi on. Findings are progressive from earlier in the day. ET tube and NG tube in good position.
== END 2019-06-08 23:00 | disposition expired | DRG 208 ==
LOC: ER 14:34 → ERHOLD 17:38
PROVIDERS: ADMIT Family Medicine; ATTEND Family Medicine
PROC: 0BH17EZ Insertion of Endotracheal Airway into Trachea, Via Natural or Artificial Opening (ICD-10-PCS; principal; 2019-06-08)
PROC: 5A1935Z Respiratory Ventilation, Less than 24 Consecutive Hours (ICD-10-PCS; 2019-06-08)
DX: J96.01 Acute respiratory failure with hypoxia (principal); J18.9 Pneumonia, unspecified organism; G93.41 Metabolic encephalopathy; E87.2 Acidosis; T68.XXXA Hypothermia, initial encounter; I95.9 Hypotension, unspecified; E78.00 Pure hypercholesterolemia, unspecified; Z95.0 Presence of cardiac pacemaker
CPT/HCPCS: 31500; 36415; 51702; 70450; 71045; 71250; 74176; 80048; 80076; 81003; 81015; 82805; 82947; 83605; 83690; 84145; 84484; 85025; 85610; 85730; 87040; 87086; 87088; 87804; 94002; 99291; 99292; J0696; J2250; J2405; J2704; J7030